=== PATIENT | female | born 1975 | race Caucasian/White ===

== ENCOUNTER 2016-07-03 07:06 | Emergency (ER) | payer BC, OTHER ==
[~2016-07-03] VITALS: Ht 175.3 cm; Wt 80.5 kg
[~2016-07-03 07:06] MED LIST: LEVO50TA PO
[2016-07-03 07:10] VITALS: TEMP 36.6; Ht 175.3 cm; Wt 80.5 kg
[2016-07-03] MEDS ORDERED: MoRPHine SULFATE 4 MG/ML 1 ML CARP\\VIAL IV STA (07:28)
[2016-07-03] MEDS ORDERED: SODIUM CHLORIDE 0.9% 1000ML 1,000 ML IV STA (07:28)
--- NOTE | 2016-07-03 07:41 | DIAGNOSTIC IMAGING REPORT ---
CHEST ONE VIEW PORTABLE CLINICAL HISTORY: Atypical chest pain COMPARISON STUDY: No previous studies for comparison. FINDINGS: The cardiac and mediastinal contours are normal. There is no evidence of focal pulmonary consolidation. There is no evidence of failure. No pleural effusions are visualized.[ IMPRESSION: No active disease in the chest. Electronically signed by: Reagan Adair M.D. 07/03/2016 7:39 AM Dictated Date/Time: 07/03/2016 7:39 AM
[2016-07-03] MEDS ORDERED: LEVO112T4 PO (07:42)
[2016-07-03 07:54] LABS: BASO % 0.2 %; BASO ABS # 0.01 K/uL (0-0.2); COMPLETE YES; EOS % 2.7 %; HEMATOCRIT 43.9 % (37-47); IG% 0.2 %; LYMPH % 12.7 %; LYMPH ABS # 0.65 K/uL (1.2-3.4); MEAN CELL VOLUME 91.5 fL (80-100); MEAN CORPUSCULAR HEMOGLOBIN 30.8 pg (25-34); MEAN CORPUSCULAR HGB CONC 33.7 g/dl (32-36); MEAN PLATELET VOLUME 10.9 fL (7.4-10.4); MONO % 7.4 %; NEUT % 76.8 %; PLATELET COUNT 168 K/uL (130-400); WHITE BLOOD COUNT 5.11 K/uL (4.8-10.8)
[2016-07-03 08:02] LABS: BUN/CREATININE RATIO 16.7 (10-20); CALCIUM 8.7 mg/dl (8.5-10.1); CREATININE 0.83 mg/dl (0.60-1.20); POTASSIUM 4.1 mmol/L (3.5-5.1)
[2016-07-03 08:07] LABS: CKMB/CK RATIO 1.4 (0-3.0)
[2016-07-03 08:43] VITALS: BP 100/58; PULSE 64; O2SAT 96
[2016-07-03 08:56] LABS: URINE APPEARANCE CLEAR (CLEAR); URINE BILIRUBIN NEG (NEG); URINE COLOR YELLOW; URINE EPITHELIAL CELL AUTO >30 /lpf (0-5); URINE NITRITE NEG (NEG); URINE PH 6.5 (4.5-7.5); URINE SPECIFIC GRAVITY 1.019 (1.000-1.030); UROBILINOGEN NEG (NEG)
[2016-07-03 08:58] LABS: MANUAL MICROSCOPIC REQUIRED? NO; REVIEW REQ? NO
--- NOTE | 2016-07-03 09:17 | EMERGENCY ROOM VISIT NOTE ---
ED Visit Note First contact with patient: 07:12 Chief Complaint: Abdominal pain. History of Present Illness: Ms. Winn is a 40 year-old white female complaining of epigastric abdominal pain. Historically patient reports she is status post cholecystectomy from approximately 12 years ago without complications. Additionally she reports over the last 24-36 hours her had gastroenteritis-like symptoms and for the last 24 hours she has been having intermittent nausea but no vomiting. Patient reports a acute onset of epigastric abdominal pain that woke her from sleep started approximately 1.5 hours ago. She reports she had a severe cramping in the epigastric area that lasted approximately 3 minutes and then resolved and returned for approximately the same length of time and subsequently has resolved. She reports at the time of the pain and doubled her over. Her pain was rated 9/10. Currently she is pain-free. Her pain was minimally rating in her lower sternal area and just superior to the umbilicus. She did not identify any aggravating or alleviating factors related to the discomfort. She did not take any medications for her discomfort prior to arrival at the hospital. She has had no similar episodes of pain. Associated with the she reports she was nauseated but didn't vomit and on the last episode of pain she reports she had paresthesias in both arms and her face and became diaphoretic. Patient denies fevers, chills, skin eruptions, skin color changes, upper respiratory tract symptoms, shortness of breath, palpitations, orthopnea, dependent edema, previous clots, claudication, recent surgery/inactivity/ extended travel, diarrhea, constipation, rectal bleeding, black/tarry stools, urinary symptoms, hematuria, vaginal bleeding, vaginal discharge, back/flank pain. Review of Systems: As noted above in history of present illness. All body systems were reviewed and found to be negative as noted above. Past Medical History: As previously noted, hypothyroidism. Current Medications: Levothyroxine. Allergies to Medications: Amoxicillin. Social History: Patient is currently; she felt safe environment; she denies tobacco use; she admits to social alcohol use. Physical Examination: Vital Signs: Date Time Temp Pulse Resp B/P Pulse Ox O2 Delivery O2 Flow Rate FiO2 07/03/16 08:43 64 14 100/58 96 07/03/16 08:00 68 14 104/60 97 Room Air 07/03/16 07:50 70 07/03/16 07:10 36.6 76 18 99/60 95 Room Air GENERAL: 40-year-old female in no acute distress, nontoxic-appearing, afebrile and hemodynamically stable. NEUROLOGICAL: Awake, alert and oriented to person, place and time. Answering questions appropriately and following commands. Normal gait. Good hand eye coordination. SKIN: Warm, dry and pink. No soft tissue eruptions or trauma noted. HEENT: Atraumatic and normocephalic. PERRLA. Sclera white and conjunctiva pink. Oral cavity moist and pink. Pharynx is nonerythematous or edematous. Speech normal. No lymphadenopathy. Trachea midline. No jugular venous distention. BACK: No tenderness over the bony spine. No CVA tenderness. THORAX: Lungs sounds are clear to auscultation and equal bilaterally with symmetrical chest wall. No wheezing, rales or rhonchi. No crepitus, tenderness , subcutaneous air or deformities noted. HEART: Regular rate and rhythm. No gallops, rubs or murmurs are appreciated. PMI is not displaced. No lifts, heaves or thrills. ABDOMEN: Flat, soft and nontender. Positive bowel sounds in all quadrants. No guarding, rigidity or organomegaly. EXTREMITIES: Moves all extremities well on command and with purpose. All distal neurovascular statuses are intact and equal bilaterally. ED Course: Patient is assessed as noted above. Laboratory Testing: Test 07/03/16 07:25 07/03/16 07:27 Range/Units White Blood Count 5.11 4.8-10.8 K/uL Red Blood Count 4.80 4.2-5.4 M/uL Hemoglobin 14.8 12.0-16.0 g/dL Hematocrit 43.9 37-47 % Mean Corpuscular Volume 91.5 80-100 fL Mean Corpuscular Hemoglobin 30.8 25-34 pg Mean Corpuscular Hemoglobin Concent 33.7 32-36 g/dl Platelet Count 168 130-400 K/uL Mean Platelet Volume 10.9 7.4-10.4 fL Neutrophils (%) (Auto) 76.8 % Lymphocytes (%) (Auto) 12.7 % Monocytes (%) (Auto) 7.4 % Eosinophils (%) (Auto) 2.7 % Basophils (%) (Auto) 0.2 % Neutrophils # (Auto) 3.92 1.4-6.5 K/uL Lymphocytes # (Auto) 0.65 1.2-3.4 K/uL Monocytes # (Auto) 0.38 0.11-0.59 K/uL Eosinophils # (Auto) 0.14 0-0.5 K/uL Basophils # (Auto) 0.01 0-0.2 K/uL RDW Standard Deviation 43.9 36.4-46.3 fL RDW Coefficient of Variation 13.1 11.5-14.5 % Immature Granulocyte % (Auto) 0.2 % Immature Granulocyte # (Auto) 0.01 0.00-0.02 K/uL Urine Color YELLOW Urine Appearance CLEAR CLEAR Urine pH 6.5 4.5-7.5 Urine Specific [place] 1.019 1.000-1.030 Urine Protein NEG NEG Urine Glucose (UA) NEG NEG Urine Ketones NEG NEG Urine Occult Blood NEG NEG Urine Nitrite NEG NEG Urine Bilirubin NEG NEG Urine Urobilinogen NEG NEG Urine Leukocyte Esterase SMALL NEG Urine WBC (Auto) 5-10 0-5 /hpf Urine RBC (Auto) 0-4 0-4 /hpf Urine Hyaline Casts (Auto) 1-5 0-5 /lpf Urine Epithelial Cells (Auto) >30 0-5 /lpf Urine Bacteria (Auto) 1+ NEG Urine Test NEG NEG Sodium Level 141 136-145 mmol/L Potassium Level 4.1 3.5-5.1 mmol/L Chloride Level 107 98-107 mmol/L Carbon Dioxide Level 26 21-32 mmol/L Anion Gap 8.0 3-11 mmol/L Blood Urea Nitrogen 14 7-18 mg/dl Creatinine 0.83 0.60-1.20 mg/dl Est Creatinine Clear Calc Drug Dose 104.4 ml/min Estimated GFR () 103.7 Estimated GFR (Non- 89.5 BUN/Creatinine Ratio 16.7 10-20 Random Glucose 97 70-99 mg/dl Calcium Level 8.7 8.5-10.1 mg/dl Total Bilirubin 0.6 0.2-1 mg/dl Direct Bilirubin 0.2 0-0.2 mg/dl Aspartate Amino Transf (AST/SGOT) 25 15-37 U/L Alanine Aminotransferase (ALT/SGPT) 26 12-78 U/L Alkaline Phosphatase 63 45-117 U/L Total Creatine Kinase 151 26-192 U/L Creatine Kinase MB 2.1 0.5-3.6 ng/ml Creatine Kinase MB Ratio 1.4 0-3.0 Total Protein 7.1 6.4-8.2 gm/dl Albumin 3.9 3.4-5.0 gm/dl Lipase 97 73-393 U/L Bedside Troponin I 0.000 0-0.045 ng/ml Chest X-Ray: Was read by myself and the radiologist showing no acute infiltrates , effusions or pneumothorax. Normal heart silhouette and bony anatomy. EKG: Was read by myself and reviewed with ; shows normal sinus rhythm with ventricular rate of 70 bpm. Normal axis, intervals and complexes. No acute ST changes indicating ischemia, injury or infarction. No previous to compare. Patient was hydrated with normal saline. Patient was reassessed multiple times during her stay in the emergency department. Patient's case was reviewed with ; we agreed on diagnostic approach, treatment, disposition and plan. Patient was educated about tonight's findings and instructed on her treatment plan; she verbalizes understanding and agreement with this plan. Clinical Impression: Acute epigastric pain. Decision-Making: Initially my differential diagnosis I considered esophageal rupture, esophageal spasm, gastric reflux, gastritis, hepatitis, pancreatitis, low level pneumonia, acute coronary syndrome, thoracic aneurysm, pneumothorax and other causes. Disposition: Patient discharged home in stable condition accompanied by her ; prior to departure she was reassessed and subjectively reported that she was pain and symptom-free. Plan: Patient was encouraged to use 650 mg of acetaminophen every 6 hours as needed for pain. Patient was encouraged to stay well-hydrated. Patient was encouraged use a bland diet for the next 24 hours and avoid stomach irritants including NSAIDs. Patient was encouraged to follow-up with family physician for recheck. Patient was encouraged return the ED for worsening/uncontrolled pain, fevers, vomiting, bloody stools or any new/concerning symptoms.
== END 2016-07-03 08:45 | disposition home or self-care (01) ==
LOC: C.EDB 07:07
DX: R10.13 Epigastric pain (principal); E03.9 Hypothyroidism, unspecified

== ENCOUNTER 2022-02-06 11:36 | Inpatient (IN) ==
[2022-02-06] MEDS ORDERED: LORazepam 1 MG TAB PO STA (12:13)
[2022-02-06 12:18] LABS: Appearance Urine Clear (Clear); Bilirubin Urine Negative (Negative); Blood Urine Negative (Negative); Color Urine Yellow; Glucose Urine UA Negative (Negative); Ketones Urine Negative (Negative); Leukocyte Esterase Urine Negative (Negative); Nitrite Urine Negative (Negative); Protein Urine Negative (Negative); Specific Gravity Urine 1.005 (1.000-1.030); Urobilinogen Urine Negative (Negative)
--- NOTE | 2022-02-06 12:18 | Emergency Department Note ---
Impression & Plan Depression with suicidal ideation, Anxiety ED Provider Note Provider: Keith Ugarte MD DATE OF SERVICE: 02/06/2022 CHIEF COMPLAINT: Mental breakdown, anxiety, depression HISTORY OF PRESENT ILLNESS: Patient is a 46-year-old female presenting with today reporting worsening anxiety and depression symptoms developing over the past 2 weeks. Has had several decade history of some intermittent depression and anxiety. Patient has been report that she had significant blues and depression approximately 16 to 18 years ago actually found on the balcony and one-point and had inpatient hospitalization. Last year had significant anxiety and depression in the fall and started medications and therapy. Was doing better in the beginning of summer. 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 Came off medications and has not been in therapy since then. Last several weeks went back on her anxiety and depression medications. Did call and has an appointment status in 10 days to discuss with her therapist again her thoughts. Does not have a psychiatrist but her primary doctor has been writing her medications. Today very anxious and not sleeping as well. Patient states he is having ongoing thoughts of not wanting to be around to being almost out of body. No significant trauma or fevers otherwise reported. Patient states he is having anxiety at times and feels she is having an anxiety attack. Now having thoughts of possibly wanting to end her life but has not tried. She states she is thought since she does not have a gun she might go to a bridge or tall building and jump. REVIEW OF SYSTEMS: A total of 10 review of systems was obtained and negative except as stated above in the HPI. PAST MEDICAL HISTORY: As noted above MEDICATIONS: Reviewed home medication list SOCIAL HISTORY: No drug or alcohol history reported. 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 PHYSICAL EXAM: GENERAL: alert and oriented seated on bed at bedside appears anxious. Head: normocephalic and atraumatic EYES: No injection, discharge or icterus. NECK: Trachea midline. LUNGS: Airway patent. No retractions with some slight tachypnea at times. HEART: Regular rate and rhythm. SKIN: Acyanotic, warm, dry, without rashes EXTREMITIES: Without swelling or deformity noted. NEUROLOGICAL: No focal deficits. No aphasia or slurred speech. Ambulatory. Psych: Endorses thoughts of not wanting to be alive and SI with possibly planning to jump off a bridge or tall building. Denies HI. Denies hallucinations. Quite animated and anxious and at times almost tearful. Not responding to external stimuli. Patient's laboratory studies reviewed. Differential includes Mood disorder, infection, hypoglycemia, electrolyte abnormalities, cardiac sources, intracerebral event, toxicologic, trauma, neurologic, as well as other pathologies. IMPRESSION/MEDICAL DECISION MAKING: Patient is history of inpatient hospitalization more recently on psychotropic medications and the PCP as well as working a therapist although this did not occur during the summer. Patient now states she is feeling at times out of body and does not want to go on is now having thoughts of wanting to harm her self. Patient denies drug or alcohol use. Basic blood work was obtained. Patient denies attempting to harm her self and denies HI to me. Quite anxious and given a dose of some oral Ativan here to help with this. Seen with case management. There was discussion of the possible benefits of inpatient psychiatric care at this time to help with her significant symptoms. Voluntary inpatient treatment on a [address] was pursued and signed after an extensive discussion with them at bedside regarding the process. DIAGNOSIS: Depression with suicidal ideation, anxiety DISPOSITION: [address] [place] [address] for inpatient mental health care Past Med/Surg History Social History Smoking Status: Never smoker Preferred Language: Sinhala Communication Ability: Effective Core Inserter Required: No Beliefs That Will Affect Care: None Feels Safe at Home: Yes Assistive Devices: None Allergies Allergies Allergy/AdvReac Type Severity Reaction Status Date / Time amoxicillin Allergy Mild RASH Verified 07/03/16 07:41 Home Meds Home Medications Medication Instructions Recorded Confirmed buspirone 10 mg tablet 10 mg PO BID 02/06/22 02/06/22 cholecalciferol (vitamin D3) 50 50 mcg PO QAM 02/06/22 02/06/22 mcg (2,000 unit) capsule (D3-2000) levothyroxine 112 mcg tablet 112 mcg PO QAM 02/06/22 02/06/22 trazodone 100 mg tablet 100 mg PO HS 02/06/22 02/06/22 Results & Data (ED) Vital Signs Vital Signs - 24 hr 02/06/22 11:37 02/06/22 13:25 Pulse Rate 90 Pulse Rate [Finger] 74 Respiratory Rate 22 14 Blood Pressure [Right Arm] 115/76 Blood Pressure Mean [Right Arm] 89 Blood Pressure Position Sitting Pulse Oximetry 100 100 Oxygen Delivery Method Room Air Room Air Sepsis Recent Fever Within 48 Hours No Sepsis New/Unexplained Change in Mental Status No Sepsis Action Taken by Nursing No Action Required Laboratory Data Result diagrams: 02/06/22 12:10 02/06/22 12:10 Lab Results 02/06/22 02/06/22 02/06/22 Range/Units 12:00 12:00 12:00 WBC (4.8-10.8) K/ul RBC (3.93-5.22) M/uL Hgb (12.0-16.0) g/dl Hct (34.1-44.9) % MCV (80.0-100.0) fL MCH (25.0-34.0) pg MCHC (32.0-36.0) g/dL RDW Std Deviation (36.4-46.3) fL RDW Coeff of Ashley (11.5-14.5) % Plt Count (130-400) K/uL MPV (9.4-12.3) fL Immature Gran % (Auto) % Neut % (Auto) % Lymph % (Auto) % [place] % (Auto) % Eos % (Auto) % Baso % (Auto) % Neut # (Auto) (1.4-6.5) K/uL Lymph # (Auto) (1.2-3.4) K/uL [place] # (Auto) (0.24-0.82) K/uL Eos # (Auto) (0-0.50) K/uL Baso # (Auto) (0-0.2) K/uL Immature Gran # (Auto) (0.00-0.02) K/uL Sodium (136-145) mmol/L Potassium (3.5-5.1) mmol/L Chloride (98-107) mmol/L Carbon Dioxide (21-32) mmol/L Anion Gap (3-11) BUN (6-23) mg/dl Creatinine (0.6-1.2) mg/dl Est Cr Clr Drug Dosing ml/min Est GFR ( Amer) ml/min Est GFR (Non-Af Amer) ml/min BUN/Creatinine Ratio (10-20) Glucose (70-99(Fasting)) mg/dl Calcium (8.5-10.1) mg/dl Total Bilirubin (0.2-1.0) mg/dl AST (13-39) U/L ALT (7-52) U/L Alkaline Phosphatase (34-104) U/L Total Protein (6.0-8.3) gm/dl Albumin (3.4-5.0) gm/dl Globulin (2.5-4.0) gm/dl Albumin/Globulin Ratio (0.9-2) TSH (0.300-4.500) uIu/ml Urine Color Yellow Urine Appearance Clear (Clear) Urine pH 6.0 (4.5-7.5) Ur Specific [place] 1.005 (1.000-1.030) Urine Protein Negative (Negative) Urine Glucose (UA) Negative (Negative) Urine Ketones Negative (Negative) Urine Blood Negative (Negative) Urine Nitrite Negative (Negative) Urine Bilirubin Negative (Negative) Urine Urobilinogen Negative (Negative) Ur Leukocyte Esterase Negative (Negative) POC Ur Test NEG (NEG) Salicylates (3.0-30) mg/dl Urine Opiates Screen Neg (Neg) Ur Methadone, Qual Neg (Neg) Acetaminophen (10-30) ug/ml Urine Barbiturates Neg (Neg) Ur Phencyclidine (PCP) Neg (Neg) U Amphetamin/Meth Scrn Neg (Neg) MDMA (Ecstasy) Screen Neg (Neg) U Benzodiazepines Scrn Neg (Neg) Ur Cocaine Metabolite Neg (Neg) U Marijuana (THC) Screen Neg (Neg) Ethyl Alcohol mg/dL (<10.0) mg/dl SARS-CoV-2, RNA, NAAT (NEGATIVE) 02/06/22 02/06/22 02/06/22 Range/Units 12:10 12:10 12:10 WBC 7.67 (4.8-10.8) K/ul RBC 4.76 (3.93-5.22) M/uL Hgb 14.3 (12.0-16.0) g/dl Hct 43.9 (34.1-44.9) % MCV 92.2 (80.0-100.0) fL MCH 30.0 (25.0-34.0) pg MCHC 32.6 (32.0-36.0) g/dL RDW Std Deviation 42.4 (36.4-46.3) fL RDW Coeff of Ashley 12.4 (11.5-14.5) % Plt Count 247 (130-400) K/uL MPV 10.1 (9.4-12.3) fL Immature Gran % (Auto) 0.3 % Neut % (Auto) 72.4 % Lymph % (Auto) 17.3 % [place] % (Auto) 7.7 % Eos % (Auto) 1.6 % Baso % (Auto) 0.7 % Neut # (Auto) 5.56 (1.4-6.5) K/uL Lymph # (Auto) 1.33 (1.2-3.4) K/uL [place] # (Auto) 0.59 (0.24-0.82) K/uL Eos # (Auto) 0.12 (0-0.50) K/uL Baso # (Auto) 0.05 (0-0.2) K/uL Immature Gran # (Auto) 0.02 (0.00-0.02) K/uL Sodium 137 (136-145) mmol/L Potassium 3.6 (3.5-5.1) mmol/L Chloride 103 (98-107) mmol/L Carbon Dioxide 28 (21-32) mmol/L Anion Gap 6 (3-11) BUN 13 (6-23) mg/dl Creatinine 0.81 (0.6-1.2) mg/dl Est Cr Clr Drug Dosing 109.5 ml/min Est GFR ( Amer) 102.4 ml/min Est GFR (Non-Af Amer) 88.3 ml/min BUN/Creatinine Ratio 16.0 (10-20) Glucose 106 H (70-99(Fasting)) mg/dl Calcium 9.4 (8.5-10.1) mg/dl Total Bilirubin 0.7 (0.2-1.0) mg/dl AST 18 (13-39) U/L ALT 14 (7-52) U/L Alkaline Phosphatase 58 (34-104) U/L Total Protein 6.9 (6.0-8.3) gm/dl Albumin 4.4 (3.4-5.0) gm/dl Globulin 2.5 (2.5-4.0) gm/dl Albumin/Globulin Ratio 1.8 (0.9-2) TSH 3.252 (0.300-4.500) uIu/ml Urine Color Urine Appearance (Clear) Urine pH (4.5-7.5) Ur Specific [place] (1.000-1.030) Urine Protein (Negative) Urine Glucose (UA) (Negative) Urine Ketones (Negative) Urine Blood (Negative) Urine Nitrite (Negative) Urine Bilirubin (Negative) Urine Urobilinogen (Negative) Ur Leukocyte Esterase (Negative) POC Ur Test (NEG) Salicylates (3.0-30) mg/dl Urine Opiates Screen (Neg) Ur Methadone, Qual (Neg) Acetaminophen (10-30) ug/ml Urine Barbiturates (Neg) Ur Phencyclidine (PCP) (Neg) U Amphetamin/Meth Scrn (Neg) MDMA (Ecstasy) Screen (Neg) U Benzodiazepines Scrn (Neg) Ur Cocaine Metabolite (Neg) U Marijuana (THC) Screen (Neg) Ethyl Alcohol mg/dL (<10.0) mg/dl SARS-CoV-2, RNA, NAAT (NEGATIVE) 02/06/22 02/06/22 02/06/22 Range/Units 12:10 12:10 12:14 WBC (4.8-10.8) K/ul RBC (3.93-5.22) M/uL Hgb (12.0-16.0) g/dl Hct (34.1-44.9) % MCV (80.0-100.0) fL MCH (25.0-34.0) pg MCHC (32.0-36.0) g/dL RDW Std Deviation (36.4-46.3) fL RDW Coeff of Ashley (11.5-14.5) % Plt Count (130-400) K/uL MPV (9.4-12.3) fL Immature Gran % (Auto) % Neut % (Auto) % Lymph % (Auto) % [place] % (Auto) % Eos % (Auto) % Baso % (Auto) % Neut # (Auto) (1.4-6.5) K/uL Lymph # (Auto) (1.2-3.4) K/uL [place] # (Auto) (0.24-0.82) K/uL Eos # (Auto) (0-0.50) K/uL Baso # (Auto) (0-0.2) K/uL Immature Gran # (Auto) (0.00-0.02) K/uL Sodium (136-145) mmol/L Potassium (3.5-5.1) mmol/L Chloride (98-107) mmol/L Carbon Dioxide (21-32) mmol/L Anion Gap (3-11) BUN (6-23) mg/dl Creatinine (0.6-1.2) mg/dl Est Cr Clr Drug Dosing ml/min Est GFR ( Amer) ml/min Est GFR (Non-Af Amer) ml/min BUN/Creatinine Ratio (10-20) Glucose (70-99(Fasting)) mg/dl Calcium (8.5-10.1) mg/dl Total Bilirubin (0.2-1.0) mg/dl AST (13-39) U/L ALT (7-52) U/L Alkaline Phosphatase (34-104) U/L Total Protein (6.0-8.3) gm/dl Albumin (3.4-5.0) gm/dl Globulin (2.5-4.0) gm/dl Albumin/Globulin Ratio (0.9-2) TSH (0.300-4.500) uIu/ml Urine Color Urine Appearance (Clear) Urine pH (4.5-7.5) Ur Specific [place] (1.000-1.030) Urine Protein (Negative) Urine Glucose (UA) (Negative) Urine Ketones (Negative) Urine Blood (Negative) Urine Nitrite (Negative) Urine Bilirubin (Negative) Urine Urobilinogen (Negative) Ur Leukocyte Esterase (Negative) POC Ur Test (NEG) Salicylates < 3.0 L (3.0-30) mg/dl Urine Opiates Screen (Neg) Ur Methadone, Qual (Neg) Acetaminophen < 3 L (10-30) ug/ml Urine Barbiturates (Neg) Ur Phencyclidine (PCP) (Neg) U Amphetamin/Meth Scrn (Neg) MDMA (Ecstasy) Screen (Neg) U Benzodiazepines Scrn (Neg) Ur Cocaine Metabolite (Neg) U Marijuana (THC) Screen (Neg) Ethyl Alcohol mg/dL < 10.0 (<10.0) mg/dl SARS-CoV-2, RNA, NAAT NEGATIVE (NEGATIVE) Administered Medications Discontinued Medications Lorazepam (Lorazepam 1 Mg Tab) 1 mg PO NOW STA Stop: 02/06/22 12:14 Last Admin: 02/06/22 12:27 Dose: 1 mg Documented By: FREDY Discharge Plan Visit Data Chief Complaint: Mental Health Evaluation Stated Complaint: MENTAL BREAKDOWN ED Provider: Keith Ugarte Discharge Problem: Depression with suicidal ideation, Anxiety Patient Disposition: Admitted As Inpatient Discharge Instructions Interventions: ED Discharge Assessment Last Done: 02/06/22 14:51
[2022-02-06 12:25] LABS: Basophils # (auto) 0.05 K/uL (0-0.2); Basophils % (auto) 0.7 %; Eosinophils # (auto) 0.12 K/uL (0-0.50); Eosinophils % (auto) 1.6 %; Hematocrit (blood only) 43.9 % (34.1-44.9); Hemoglobin 14.3 g/dl (12.0-16.0); Immature Granulocytes # (auto) 0.02 K/uL (0.00-0.02); Immature Granulocytes % (auto) 0.3 %; Lymphocytes # (auto) 1.33 K/uL (1.2-3.4); Lymphocytes % (auto) 17.3 %; Mean Corpuscular Hgb Conc 32.6 g/dL (32.0-36.0); Mean Corpuscular Volume 92.2 fL (80.0-100.0); Mean Platelet Volume 10.1 fL (9.4-12.3); Monocytes # (auto) 0.59 K/uL (0.24-0.82); Monocytes % (auto) 7.7 %; Neutrophils # (auto) 5.56 K/uL (1.4-6.5); Neutrophils % (auto) 72.4 %; Platelet Count 247 K/uL (130-400); RDW Coefficient of Variation 12.4 % (11.5-14.5); RDW Standard Deviation 42.4 fL (36.4-46.3); Red Blood Count 4.76 M/uL (3.93-5.22); White Blood Count 7.67 K/ul (4.8-10.8)
[2022-02-06 12:54] LABS: Albumin Globulin Ratio 1.8 (0.9-2); Albumin Level 4.4 gm/dl (3.4-5.0); Bilirubin,Total 0.7 mg/dl (0.2-1.0); Calcium 9.4 mg/dl (8.5-10.1); Creatinine Clr Calc Pharmacy 109.5 ml/min; Est GFR (African American) 102.4 ml/min; Est GFR (Non-African American) 88.3 ml/min; Globulin 2.5 gm/dl (2.5-4.0); Potassium 3.6 mmol/L (3.5-5.1); Total Protein 6.9 gm/dl (6.0-8.3)
[2022-02-06 12:55] LABS: Acetaminophen < 3 ug/ml (10-30); Salicylate < 3.0 mg/dl (3.0-30)
[2022-02-06 13:13] LABS: Amphetamines+Metham, Urine Neg (Neg); Barbiturates, Urine Neg (Neg); Benzodiazepine, Urine Neg (Neg); Cocaine, Urine Neg (Neg); MDMA (Ecstacy), Urine Neg (Neg); Methadone, Urine Neg (Neg); Opiate, Urine Neg (Neg); Phencyclidine, Urine Neg (Neg)
[2022-02-06] MEDS ORDERED: ALUMINUM/MAGNESIUM SUSP 30 ML UDC PO PRN (16:06)
[2022-02-06] MEDS ORDERED: MAGNESIUM HYDROXIDE SUSP 30 ML UDC PO PRN (16:06)
[2022-02-06] MEDS ORDERED: hydrOXYzine HCl 25 MG TAB PO PRN ×2 (16:06)
[2022-02-06] MEDS ORDERED: BISMUTH SUBSALICYLATE LIQD 236 ML PO PRN (16:06)
[2022-02-06] MEDS ORDERED: ACETAMINOPHEN 325 MG TAB PO PRN (16:06)
[2022-02-06] MEDS ORDERED: SODIUM CHLORIDE 0.65% NA SOLN 45 ML (OCEAN) PRN (16:06)
[2022-02-06] MEDS ORDERED: traZODone HCL 100 MG TAB PO SCH (22:00)
[2022-02-06] MEDS: busPIRone 5 MG TAB PO SCH (22:53)
[2022-02-07] MEDS: LEVOTHYROXINE SODIUM 112 MCG TABLET PO SCH (06:06)
[2022-02-07] MEDS ORDERED: CHOLECALCIFEROL 1,000 UNITS 25 MCG TAB PO SCH (09:00)
--- NOTE | 2022-02-07 09:00 | History & Physical ---
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 Diagnostically consistent with MDD with anxious distres and TOM with panic attacks. The patient is deemed unstable and requires psychiatric hospitalization for diagnostic clarification, safety and stabilization, medication management and development of further coping skills. Discussed medication treatment options in detail including SSRIs, SNRI, etc. Discussed risks, benefits and alternatives. Patient would like to start and consented to fluoxetine for TOM and MDD as well as mirtazapine for insomnia and MDD augmentation and ativan for panic attacks and buspar for TOM. Reviewed side effects including but not limited to: GI, MCCULLOUGH, sexual side effects for fluoxetine, sedation/increased appetite for mirtazapine, addictive potential/fatal respiratory depression potential if combined with alcohol/avoiding driving & operating machinery and sedation with ativan and dizziness with buspar. (1) Depression with suicidal ideation: (2) Recurrent severe major depressive disorder with anxiety: (3) Generalized anxiety disorder with panic attacks: Plan 02/07/22: The patient was admitted to the [facility] ([facility]) on q15 min checks (behavioral with suicide precautions) for safety. The patient will participate in group, recreational, and milieu therapies and will be offered additional individual and family sessions as clinically appropriate. -c/w buspar -discontinue trazodone -fluoxetine 10mg qd -mirtazapine 7.5 mg qhs -ativan 0.5mg daily prn for panic attacks Inventory Assets Strengths: supportive family, willingness to seek treatment, resilient Needs: safety and stabilization, medication adjustment, additional coping skills, increased outpatient services Suicide Risk Level Suicide Risk Level: High-Moderate (q15 min suicide checks) Suicide Risk Level Comments: High-Moderate due to severe depression with SI with plan prior to admission but feels safe in the hospital, able to safety contract and agrees to let nursing/staff know should they develop plan, intent or feel unable to remain safe. Risk Factors Assessment : Yes Do You Have Access To A Gun?: No Mental Health Diagnoses: Yes Previous Attempt: No Family History of Suicide: No Previous Psychiatric Hospitalization: Yes Hopelessness: Yes Protective Factors Assessment : Yes Responsible for Young Children: Yes Employed: Yes ([employer]) Stable Relationships: Yes Supportive Family: Yes Good Rapport with Provider: Yes Psychiatric History Identifying Data NIKO FRANCISCO is a 46-year-old F who currently lives in [place] with her and two children, has a history of depression, anxiety, post- depression, and was admitted on 02/06/22 14:23 on a 201 voluntary commitment for depression and SI with plan of jumping from a bridge or building. Chief Complaint "I feel completely trapped". 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 After the school year ended she transitioned off her psychiatric medications over the summer during a low stress time. Last fall since had very intense SI. Yesterday she felt extremely overwhelmed by the stress of her job and "I couldn't see a way out" and was feeling very suicidal with thoughts of driving somewhere and jumping off of something because she noted she didn't have access to a gun and didn't have any medications that could be used to cause enough harm at home. She feels she cannot do this job and feels she cannot leave the position because it would ruin her snf and isn't financially feasible. She notes that she was not well prepared for her new [facility] position and feels helpless to implement the corniculum and "it's too much, I can't do it". She endorses depressive symptoms including tearfulness, anhedonia, decreased motivation, self-guilt, shame, discomfort, helplessness, hopelessness, decreased energy, decreased appetite but still eating, and decreased sleep (can fall asleep but multiple awakenings over night, wakes up with extreme anxiety, usually only about 5 hours per night) as well as difficulty with concentration and she feels unable to present. She also endorses symptoms of anxiety, which seemed to start first and then lead to worsening depression. She endorses symptoms of anxiety including generalized worries, muscle tension in her neck, palpitations, easily overwhelmed and panic attacks occurring three times per day lasting for about 10-15 minutes. She was prescribed Buspar and trazodone last year but then stopped after doing well over the summer but restarted then about two weeks ago. Last fall she felt the medication helped a lot. Psychiatric ROS notable for no current nor history of symptoms of jitendra, psychosis, PTSD, OCD nor eating disorder. Past Psychiatric History Previous Psych History: First episode of depression after of her son, since then depression has been intermittent. 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, dep, anxiety Outpatient Services: Therapy Janna Byrd at [place], had stopped but restarting in 10 days Previous Psych Admissions: 2006 at [facility] for post- depression Do You Have Access To A Gun?: No History of Previous Suicide Attempt: No (2005 near attempt standing balcony of apt with knife) Past Medication Trials: escitalopram-caused dizziness took for about 1 week, sertraline after post- depression, ativan in the past Past Head Trauma/Neuro History History of Concussion/Seizure: Yes (concussion in 2018 ) Allergies Allergy/AdvReac Type Severity Reaction Status Date / Time amoxicillin Allergy Mild RASH Verified 07/03/16 07:41 Home Medications Medication Instructions Recorded Confirmed Type buspirone 10 mg tablet 10 mg PO BID 02/06/22 02/06/22 History cholecalciferol (vitamin D3) 50 50 mcg PO QAM 02/06/22 02/06/22 History mcg (2,000 unit) capsule (D3-2000) levothyroxine 112 mcg tablet 112 mcg PO QAM 02/06/22 02/06/22 History trazodone 100 mg tablet 100 mg PO HS 02/06/22 02/06/22 History Family History Family History of: Depression (maternal grandfather ), Alcoholism/Drug Abuse (maternal side ) and Other-List under Comment (half-sister with BPD) Alcohol History Hx of Alcohol Use Over the Past 12 Months: Yes Will have 2-3 glasses of wine a few times per week, max 5-6 glasses of wine per week Smoking Use Have You Smoked or Used Tobacco Products in the Last 30 Days: No Smoking Status: Never smoker Substance History Hx of Prescription Med Misuse Over the Past 12 Months: No Hx of Over the Counter Med Misuse Over the Past 12 Months: No Hx of Inhalent Misuse Over the Past 12 Months: No Hx of Organic Substance Use Over the Past 12 Months: No Hx of Illegal Substances/Street Drug Use Over Past 12 Months: No Problems as a Result of Past Substance Use: None Identified Personal History Living Arrangements: Home Childhood: Mother is still living, estranged from sibling Highest Grade Completed: Graduate School (Masters ) 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[facility]) Marital Status: (18 years) Number Of Children: 2 sons-16yo and 8 yo Beliefs That Will Affect Care: None Current Legal Problems: No (hx PFA against her sister in January 2021 for three years) Hx Legal Problems: No Hx Traumatic Life Events: Yes (grew up in chaotic home environment due to her sister's mental health issue) Patient History Medical History (Updated 02/07/22 @ 10:37 by Mayte Miller MD) Hypothyroidism Social History Smoking Status: Never smoker Preferred Language: Romansh Communication Ability: Effective Political Science Research Assistant Required: No Beliefs That Will Affect Care: None Feels Safe at Home: Yes Assistive Devices: None Review of Systems Review of Systems: All systems reviewed & are unremarkable except as noted in HPI & below Physical Exam Psychiatric: Orientation: alert and oriented x 3 Apperance: appropriately dressed and appropriately groomed Eye Contact: good eye contact Motor Behavior: no abnormal motor movements Speech: normal rate/rhythm/volume of speech Affect: + depressed affect, + anxious affect and + tearful affect Mood: + depressed mood and + anxious mood Thought Process: goal directed thought process Thought Content: reality based without delusions Suicidal Thoughts: denies suicidal plan and denies suicidal intent; + reports suicidal thoughts (intermittent SI, no plan currently feels safe here) Homicidal Thoughts: denies homicidal thoughts Hallucinations: no auditory hallucinations and no visual hallucinations Cognition: recent memory grossly intact, remote memory grossly intact, attention grossly intact and language grossly intact Estimated Intelligence: consistent with education level Insight: + fair insight Judgement: + fair judgement Vital Signs (Past 24 Hours): Last Vital Signs Temp 36.9 C 02/07/22 06:00 Pulse 85 02/07/22 06:38 Resp 18 02/07/22 06:00 BP 108/70 02/07/22 06:38 Pulse Ox 99 02/06/22 15:49 O2 Del Method 02/06/22 15:49 Exam Statement: A physical exam was performed in the ED by Dr. Ugarte for the purposes of medical clearance. I accept that physical as correct and adequate for the purposes of the inpatient physical exam. Results & Data ([facility]) Laboratory Results Laboratory Results - last 24 hr 02/06/22 02/06/22 02/06/22 12:00 12:00 12:00 WBC RBC Hgb Hct MCV MCH MCHC RDW Std Deviation RDW Coeff of Ashley Plt Count MPV Immature Gran % (Auto) Neut % (Auto) Lymph % (Auto) Pershing % (Auto) Eos % (Auto) Baso % (Auto) Neut # (Auto) Lymph # (Auto) Pershing # (Auto) Eos # (Auto) Baso # (Auto) Immature Gran # (Auto) Sodium Potassium Chloride Carbon Dioxide Anion Gap BUN Creatinine Est Cr Clr Drug Dosing Est GFR ( Amer) Est GFR (Non-Af Amer) BUN/Creatinine Ratio Glucose Calcium Total Bilirubin AST ALT Alkaline Phosphatase Total Protein Albumin Globulin Albumin/Globulin Ratio TSH Urine Color Yellow Urine Appearance Clear Urine pH 6.0 Ur Specific [place] 1.005 Urine Protein Negative Urine Glucose (UA) Negative Urine Ketones Negative Urine Blood Negative Urine Nitrite Negative Urine Bilirubin Negative Urine Urobilinogen Negative Ur Leukocyte Esterase Negative POC Ur Test NEG Salicylates Urine Opiates Screen Neg Ur Methadone, Qual Neg Acetaminophen Urine Barbiturates Neg Ur Phencyclidine (PCP) Neg U Amphetamin/Meth Scrn Neg MDMA (Ecstasy) Screen Neg U Benzodiazepines Scrn Neg Ur Cocaine Metabolite Neg U Marijuana (THC) Screen Neg Ethyl Alcohol mg/dL SARS-CoV-2, RNA, NAAT 02/06/22 02/06/22 02/06/22 12:10 12:10 12:10 WBC 7.67 RBC 4.76 Hgb 14.3 Hct 43.9 MCV 92.2 MCH 30.0 MCHC 32.6 RDW Std Deviation 42.4 RDW Coeff of Ashley 12.4 Plt Count 247 MPV 10.1 Immature Gran % (Auto) 0.3 Neut % (Auto) 72.4 Lymph % (Auto) 17.3 Pershing % (Auto) 7.7 Eos % (Auto) 1.6 Baso % (Auto) 0.7 Neut # (Auto) 5.56 Lymph # (Auto) 1.33 Pershing # (Auto) 0.59 Eos # (Auto) 0.12 Baso # (Auto) 0.05 Immature Gran # (Auto) 0.02 Sodium 137 Potassium 3.6 Chloride 103 Carbon Dioxide 28 Anion Gap 6 BUN 13 Creatinine 0.81 Est Cr Clr Drug Dosing 109.5 Est GFR ( Amer) 102.4 Est GFR (Non-Af Amer) 88.3 BUN/Creatinine Ratio 16.0 Glucose 106 H Calcium 9.4 Total Bilirubin 0.7 AST 18 ALT 14 Alkaline Phosphatase 58 Total Protein 6.9 Albumin 4.4 Globulin 2.5 Albumin/Globulin Ratio 1.8 TSH 3.252 Urine Color Urine Appearance Urine pH Ur Specific [place] Urine Protein Urine Glucose (UA) Urine Ketones Urine Blood Urine Nitrite Urine Bilirubin Urine Urobilinogen Ur Leukocyte Esterase POC Ur Test Salicylates Urine Opiates Screen Ur Methadone, Qual Acetaminophen Urine Barbiturates Ur Phencyclidine (PCP) U Amphetamin/Meth Scrn MDMA (Ecstasy) Screen U Benzodiazepines Scrn Ur Cocaine Metabolite U Marijuana (THC) Screen Ethyl Alcohol mg/dL SARS-CoV-2, RNA, NAAT 02/06/22 02/06/22 02/06/22 12:10 12:10 12:14 WBC RBC Hgb Hct MCV MCH MCHC RDW Std Deviation RDW Coeff of Ashley Plt Count MPV Immature Gran % (Auto) Neut % (Auto) Lymph % (Auto) Pershing % (Auto) Eos % (Auto) Baso % (Auto) Neut # (Auto) Lymph # (Auto) Pershing # (Auto) Eos # (Auto) Baso # (Auto) Immature Gran # (Auto) Sodium Potassium Chloride Carbon Dioxide Anion Gap BUN Creatinine Est Cr Clr Drug Dosing Est GFR ( Amer) Est GFR (Non-Af Amer) BUN/Creatinine Ratio Glucose Calcium Total Bilirubin AST ALT Alkaline Phosphatase Total Protein Albumin Globulin Albumin/Globulin Ratio TSH Urine Color Urine Appearance Urine pH Ur Specific [place] Urine Protein Urine Glucose (UA) Urine Ketones Urine Blood Urine Nitrite Urine Bilirubin Urine Urobilinogen Ur Leukocyte Esterase POC Ur Test Salicylates < 3.0 L Urine Opiates Screen Ur Methadone, Qual Acetaminophen < 3 L Urine Barbiturates Ur Phencyclidine (PCP) U Amphetamin/Meth Scrn MDMA (Ecstasy) Screen U Benzodiazepines Scrn Ur Cocaine Metabolite U Marijuana (THC) Screen Ethyl Alcohol mg/dL < 10.0 SARS-CoV-2, RNA, NAAT NEGATIVE Current Inpatient Medications Current Inpatient Medications: Current Inpatient Medications Acetaminophen (Acetaminophen 325 Mg Tab) 650 mg PO Q4H PRN PRN Reason: Headache or Minor Fever Stop: 03/08/22 16:05 Al Hydrox/Mg Hydrox/Simethicone (Aluminum/Magnesium Susp 30 Ml Udc) 30 ml PO Q4H PRN PRN Reason: GI Upset Stop: 03/08/22 16:05 Bismuth Subsalicylate (Bismuth Subsalicylate Liqd 236 Ml) 15 ml PO PRN PRN PRN Reason: Loose Stool Stop: 03/08/22 16:05 Buspirone HCl (Buspirone 5 Mg Tab) 10 mg PO BID MAXIMINO Stop: 03/08/22 20:59 Last Admin: 02/06/22 22:53 Dose: 10 mg Hydroxyzine HCl (Hydroxyzine Hcl 25 Mg Tab) 50 mg PO HSZ PRN PRN Reason: Insomnia Stop: 03/08/22 16:05 Hydroxyzine HCl (Hydroxyzine Hcl 25 Mg Tab) 25 mg PO Q4H PRN PRN Reason: Anxiety Stop: 03/08/22 16:05 Levothyroxine Sodium (Levothyroxine Sodium 112 Mcg Tablet) 112 mcg PO DAILY@0630 MAXIMINO Stop: 03/09/22 06:29 Last Admin: 02/07/22 06:06 Dose: 112 mcg Magnesium Hydroxide (Magnesium Hydroxide Susp 30 Ml Udc) 30 ml PO DAILY PRN PRN Reason: Constipation Stop: 03/08/22 16:05 Sodium Chloride (Sodium Chloride 0.65% Na Soln 45 Ml ([place])) 1 - 2 sprays NA PRN PRN PRN Reason: Nasal Dryness/Congestion Stop: 03/08/22 16:05 Trazodone HCl (Trazodone Hcl 100 Mg Tab) 100 mg PO HS MAXIMINO Stop: 03/08/22 21:59 Last Admin: 02/06/22 22:53 Dose: 100 mg Vitamin D (Cholecalciferol 1,000 Units 25 Mcg Tab) 2,000 units PO QAM MAXIMINO Stop: 03/09/22 08:59
[2022-02-07] MEDS: CHOLECALCIFEROL 1,000 UNITS 25 MCG TAB PO SCH (09:22)
[2022-02-07] MEDS: busPIRone 5 MG TAB PO SCH ×2 (09:22→22:13)
[2022-02-07] MEDS ORDERED: LORazepam 0.5 MG TAB PO PRN (10:27)
[2022-02-07] MEDS: FLUoxetine HCL 10 MG CAP PO SCH (12:18)
[2022-02-07] MEDS ORDERED: MIRTAZAPINE TAB 15 MG TAB PO SCH (22:00)
[2022-02-08] MEDS: LEVOTHYROXINE SODIUM 112 MCG TABLET PO SCH (06:58)
--- NOTE | 2022-02-08 08:50 | Psychiatric Progress Note ---
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 Diagnostically consistent with MDD with anxious distres and TOM with panic attacks. The patient is deemed unstable and requires psychiatric hospitalization for diagnostic clarification, safety and stabilization, medication management and development of further coping skills. 02/08/22: Ongoing severe depression and anxiety with significant insomnia. Tolerating the fluoxetine so far but some fogginess today so we will continue at current low dose for now. We will increase mirtazapine to further target insomnia. (1) Depression with suicidal ideation: (2) Recurrent severe major depressive disorder with anxiety: (3) Generalized anxiety disorder with panic attacks: Plan 02/08/22: Increase mirtazapine to 30 mg nightly continue with fluoxetine and BuSpar. 02/07/22: The patient was admitted to the [facility] ([facility] mental health unit) on q15 min checks (behavioral with suicide precautions) for safety. The patient will participate in group, recreational, and milieu therapies and will be offered additional individual and family sessions as clinically appropriate. -c/w buspar -discontinue trazodone -fluoxetine 10mg qd -mirtazapine 15 mg qhs -ativan 0.5mg daily prn for panic attacks Inventory Assets Strengths: supportive family, willingness to seek treatment, resilient Needs: safety and stabilization, medication adjustment, additional coping skills, increased outpatient services Suicide Risk Level Suicide Risk Level: High-Moderate (q15 min suicide checks) Suicide Risk Level Comments: High-Moderate due to severe depression with SI with plan prior to admission but feels safe in the hospital, able to safety contract and agrees to let nursing/staff know should they develop plan, intent or feel unable to remain safe. Risk Factors Assessment : Yes Do You Have Access To A Gun?: No Mental Health Diagnoses: Yes Previous Attempt: No Family History of Suicide: No Previous Psychiatric Hospitalization: Yes Hopelessness: Yes Protective Factors Assessment : Yes Responsible for Young Children: Yes Employed: Yes ([employer] [place] [employer]) Stable Relationships: Yes Supportive Family: Yes Good Rapport with Provider: Yes Interval History Identifying Information NIKO FRANCISCO is a 46-year-old F who currently lives in [place] with her and two children, has a history of depression, anxiety, post- depression, and was admitted on 02/06/22 14:23 on a 201 voluntary commitment for depression and SI with plan of jumping from a bridge or building. Chief Complaint "I know I keep taking about my job but I just don't know what I'm going to do". Review of Systems Sleep Information Total Hours of Sleep: 7 Sleep Comments: states she woke with anxiety Meal Information Percent Meal Consumed - Breakfast: 90 Percent Meal Consumed - Lunch: 100 Percent Meal Consumed - Dinner: 100 Subjective Subjective Patient was seen & assessed and interval progress reviewed with treatment team nursing and social work. Flat and depressed but smiling a few times. Slept for a reported 7 hours but she felt like she didn't sleep. Its ongoing severe depression and anxiety. She did not sleep well last night is interested in increasing the mirtazapine. She notes her mood is "very low". She is tolerating the fluoxetine so far denies any side effects except "a little fogginess" but she is unsure if this is due to poor sleep. She continues to feel very helpless and hopeless about her situation with her job she feels that she is absolutely unable to continue in her current position. Physical Exam Psychiatric Orientation: alert and oriented x 3 Apperance: appropriately dressed and appropriately groomed Eye Contact: good eye contact Motor Behavior: no abnormal motor movements Speech: normal rate/rhythm/volume of speech Affect: + depressed affect, + anxious affect and + tearful affect Mood: + depressed mood and + anxious mood Thought Process: goal directed thought process Thought Content: reality based without delusions Suicidal Thoughts: denies suicidal plan and denies suicidal intent; + reports suicidal thoughts (intermittent SI, no plan currently feels safe here) Homicidal Thoughts: denies homicidal thoughts Hallucinations: no auditory hallucinations and no visual hallucinations Cognition: recent memory grossly intact, remote memory grossly intact, attention grossly intact and language grossly intact Estimated Intelligence: consistent with education level Insight: + fair insight Judgement: + fair judgement Vital Signs (Past 24 Hours) Last Vital Signs Temp 36.9 C 02/08/22 06:00 Pulse 79 02/08/22 06:36 Resp 18 02/08/22 06:00 BP 105/70 02/08/22 06:36 Pulse Ox 99 02/06/22 15:49 O2 Del Method 02/06/22 15:49 Results & Data ([facility]) Current Inpatient Medications Current Inpatient Medications: Current Inpatient Medications Acetaminophen (Acetaminophen 325 Mg Tab) 650 mg PO Q4H PRN PRN Reason: Headache or Minor Fever Stop: 03/08/22 16:05 Al Hydrox/Mg Hydrox/Simethicone (Aluminum/Magnesium Susp 30 Ml Udc) 30 ml PO Q4H PRN PRN Reason: GI Upset Stop: 03/08/22 16:05 Bismuth Subsalicylate (Bismuth Subsalicylate Liqd 236 Ml) 15 ml PO PRN PRN PRN Reason: Loose Stool Stop: 03/08/22 16:05 Buspirone HCl (Buspirone 5 Mg Tab) 10 mg PO BID MAXIMINO Stop: 03/08/22 20:59 Last Admin: 02/07/22 22:13 Dose: 10 mg Fluoxetine HCl (Fluoxetine Hcl 10 Mg Cap) 10 mg PO QAM MAXIMINO Stop: 03/09/22 10:29 Last Admin: 02/07/22 12:18 Dose: 10 mg Hydroxyzine HCl (Hydroxyzine Hcl 25 Mg Tab) 50 mg PO HSZ PRN PRN Reason: Insomnia Stop: 03/08/22 16:05 Hydroxyzine HCl (Hydroxyzine Hcl 25 Mg Tab) 25 mg PO Q4H PRN PRN Reason: Anxiety Stop: 03/08/22 16:05 Levothyroxine Sodium (Levothyroxine Sodium 112 Mcg Tablet) 112 mcg PO DAILY@0630 MAXIMINO Stop: 03/09/22 06:29 Last Admin: 02/08/22 06:58 Dose: 112 mcg Lorazepam (Lorazepam 0.5 Mg Tab) 0.5 mg PO DAILY PRN PRN Reason: Anxiety/panic attacks Stop: 03/09/22 10:26 Magnesium Hydroxide (Magnesium Hydroxide Susp 30 Ml Udc) 30 ml PO DAILY PRN PRN Reason: Constipation Stop: 03/08/22 16:05 Mirtazapine (Mirtazapine Tab 15 Mg Tab) 15 mg PO HS MAXIMINO Stop: 03/09/22 21:59 Last Admin: 02/07/22 22:13 Dose: 15 mg Sodium Chloride (Sodium Chloride 0.65% Na Soln 45 Ml ([place])) 1 - 2 sprays NA PRN PRN PRN Reason: Nasal Dryness/Congestion Stop: 03/08/22 16:05 Vitamin D (Cholecalciferol 1,000 Units 25 Mcg Tab) 2,000 units PO QAM MAXIMINO Stop: 03/09/22 08:59 Last Admin: 02/07/22 09:22 Dose: 2,000 units Mental Health & Subst Abuse Tx Therapist Name of Therapist: Nimo Newsome Date of Therapist Appointment: 02/16/22 Database Admin Name of Database Admin: None Post Discharge Appointments Primary Care Physician Name Of Family Doctor: Radha Sr
[2022-02-08] MEDS: CHOLECALCIFEROL 1,000 UNITS 25 MCG TAB PO SCH (08:52)
[2022-02-08] MEDS: busPIRone 5 MG TAB PO SCH ×2 (08:53→21:14)
[2022-02-08] MEDS: FLUoxetine HCL 10 MG CAP PO SCH (08:53)
[2022-02-08] MEDS ORDERED: MIRTAZAPINE TAB 15 MG TAB PO SCH (22:00)
[2022-02-09] MEDS: LEVOTHYROXINE SODIUM 112 MCG TABLET PO SCH (07:04)
[2022-02-09] MEDS: busPIRone 5 MG TAB PO SCH ×2 (08:34→21:26)
[2022-02-09] MEDS: CHOLECALCIFEROL 1,000 UNITS 25 MCG TAB PO SCH (08:34)
[2022-02-09] MEDS: FLUoxetine HCL 10 MG CAP PO SCH (08:34)
--- NOTE | 2022-02-09 14:04 | Psychiatric Progress Note ---
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 Diagnostically consistent with MDD with anxious distres and TOM with panic attacks. The patient is deemed unstable and requires psychiatric hospitalization for diagnostic clarification, safety and stabilization, medication management and development of further coping skills. 02/09/22: Ongoing depression and anxiety with significant insomnia. Tolerating the fluoxetine so will increase to effective dose. Prefers to use trazodone again for sleep-reviewed risks/benefits/alternatives. (1) Depression with suicidal ideation: (2) Recurrent severe major depressive disorder with anxiety: (3) Generalized anxiety disorder with panic attacks: Plan 02/09/22: increase fluoxetine to 20mg qd, stop mirtazapine, start trazodone 100mg qhs. 02/08/22: Increase mirtazapine to 30 mg nightly continue with fluoxetine and BuSpar. 02/07/22: The patient was admitted to the [facility] ([facility]) on q15 min checks (behavioral with suicide precautions) for safety. The patient will participate in group, recreational, and milieu therapies and will be offered additional individual and family sessions as clinically appropriate. -c/w buspar -discontinue trazodone -fluoxetine 10mg qd -mirtazapine 15 mg qhs -ativan 0.5mg daily prn for panic attacks Inventory Assets Strengths: supportive family, willingness to seek treatment, resilient Needs: safety and stabilization, medication adjustment, additional coping skills, increased outpatient services Suicide Risk Level Suicide Risk Level: High-Moderate (q15 min suicide checks) Suicide Risk Level Comments: High-Moderate due to severe depression with SI with plan prior to admission but feels safe in the hospital, able to safety contract and agrees to let nursing/staff know should they develop plan, intent or feel unable to remain safe. Risk Factors Assessment : Yes Do You Have Access To A Gun?: No Mental Health Diagnoses: Yes Previous Attempt: No Family History of Suicide: No Previous Psychiatric Hospitalization: Yes Hopelessness: Yes Protective Factors Assessment : Yes Responsible for Young Children: Yes Employed: Yes ([employer]) Stable Relationships: Yes Supportive Family: Yes Good Rapport with Provider: Yes Interval History Identifying Information NIKO FRANCISCO is a 46-year-old F who currently lives in [place] with her and two children, has a history of depression, anxiety, post- depression, and was admitted on 02/06/22 14:23 on a 201 voluntary commitment for depression and SI with plan of jumping from a bridge or building. Chief Complaint "I'm doing a little better". Review of Systems Sleep Information Total Hours of Sleep: 5.5 Sleep Comments: Vistaril 50mg PO PRN Meal Information Percent Meal Consumed - Breakfast: 100 Percent Meal Consumed - Lunch: 100 Percent Meal Consumed - Dinner: 100 Subjective Subjective Patient was seen & assessed and interval progress reviewed with treatment team nursing and social work. Still not sleeping well, she attributes this in part due to hospital environment/15 min checks. Had family meeting and feels a "little more hopeful". Still with some fogginess but she's not sure if it's from the fluoxetine or from sleep difficulty/fatigue. Feeling like she has some time to consider work options if she applies for FMLA. Physical Exam Psychiatric Orientation: alert and oriented x 3 Apperance: appropriately dressed and appropriately groomed Eye Contact: good eye contact Motor Behavior: no abnormal motor movements Speech: normal rate/rhythm/volume of speech Affect: + depressed affect and + anxious affect Mood: + depressed mood and + anxious mood Thought Process: goal directed thought process Thought Content: reality based without delusions Suicidal Thoughts: denies suicidal thoughts, denies suicidal plan and denies suicidal intent Homicidal Thoughts: denies homicidal thoughts Hallucinations: no auditory hallucinations and no visual hallucinations Cognition: recent memory grossly intact, remote memory grossly intact, attention grossly intact and language grossly intact Estimated Intelligence: consistent with education level Insight: + fair insight Judgement: + fair judgement Vital Signs (Past 24 Hours) Last Vital Signs Temp 36.8 C 02/09/22 06:39 Pulse 87 02/09/22 06:40 Resp 16 02/09/22 06:39 BP 92/61 L 02/09/22 06:40 Pulse Ox 99 02/06/22 15:49 O2 Del Method 02/06/22 15:49 Results & Data ([facility]) Current Inpatient Medications Current Inpatient Medications: Current Inpatient Medications Acetaminophen (Acetaminophen 325 Mg Tab) 650 mg PO Q4H PRN PRN Reason: Headache or Minor Fever Stop: 03/08/22 16:05 Al Hydrox/Mg Hydrox/Simethicone (Aluminum/Magnesium Susp 30 Ml Udc) 30 ml PO Q4H PRN PRN Reason: GI Upset Stop: 03/08/22 16:05 Bismuth Subsalicylate (Bismuth Subsalicylate Liqd 236 Ml) 15 ml PO PRN PRN PRN Reason: Loose Stool Stop: 03/08/22 16:05 Buspirone HCl (Buspirone 5 Mg Tab) 10 mg PO BID [facility] Stop: 03/08/22 20:59 Last Admin: 02/09/22 08:34 Dose: 10 mg Fluoxetine HCl (Fluoxetine Hcl 20 Mg Cap) 20 mg PO QAM [facility] Stop: 03/12/22 08:59 Hydroxyzine HCl (Hydroxyzine Hcl 25 Mg Tab) 50 mg PO HSZ PRN PRN Reason: Insomnia Stop: 03/08/22 16:05 Last Admin: 02/08/22 23:38 Dose: 50 mg Hydroxyzine HCl (Hydroxyzine Hcl 25 Mg Tab) 25 mg PO Q4H PRN PRN Reason: Anxiety Stop: 03/08/22 16:05 Levothyroxine Sodium (Levothyroxine Sodium 112 Mcg Tablet) 112 mcg PO DAILY@0630 [facility] Stop: 03/09/22 06:29 Last Admin: 02/09/22 07:04 Dose: 112 mcg Lorazepam (Lorazepam 0.5 Mg Tab) 0.5 mg PO DAILY PRN PRN Reason: Anxiety/panic attacks Stop: 03/09/22 10:26 Magnesium Hydroxide (Magnesium Hydroxide Susp 30 Ml Udc) 30 ml PO DAILY PRN PRN Reason: Constipation Stop: 03/08/22 16:05 Sodium Chloride (Sodium Chloride 0.65% Na Soln 45 Ml ([place])) 1 - 2 sprays NA PRN PRN PRN Reason: Nasal Dryness/Congestion Stop: 03/08/22 16:05 Trazodone HCl (Trazodone Hcl 100 Mg Tab) 100 mg PO HS MAXIMINO Stop: 03/11/22 21:59 Vitamin D (Cholecalciferol 1,000 Units 25 Mcg Tab) 2,000 units PO QAM MAXIMNIO Stop: 03/09/22 08:59 Last Admin: 02/09/22 08:34 Dose: 2,000 units Mental Health & Subst Abuse Tx Therapist Name of Therapist: Nimo Newsome Date of Therapist Appointment: 02/16/22 Conduit Mechanic Name of Conduit Mechanic: None Post Discharge Appointments Primary Care Physician Name Of Family Doctor: Radha Sr
[2022-02-09] MEDS ORDERED: traZODone HCL 100 MG TAB PO SCH (22:00)
[2022-02-10] MEDS: LEVOTHYROXINE SODIUM 112 MCG TABLET PO SCH (06:45)
[2022-02-10] MEDS: busPIRone 5 MG TAB PO SCH (08:32)
[2022-02-10] MEDS: CHOLECALCIFEROL 1,000 UNITS 25 MCG TAB PO SCH (08:32)
[2022-02-10] MEDS ORDERED: FLUoxetine HCL 20 MG CAP PO SCH (09:00)
--- NOTE | 2022-02-10 13:50 | Discharge Summary ---
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 After the school year ended she transitioned off her psychiatric medications over the summer during a low stress time. Last fall since had very intense SI. Yesterday she felt extremely overwhelmed by the stress of her job and "I couldn't see a way out" and was feeling very suicidal with thoughts of driving somewhere and jumping off of something because she noted she didn't have access to a gun and didn't have any medications that could be used to cause enough harm at home. She feels she cannot do this job and feels she cannot leave the position because it would ruin her intermediate and isn't financially feasible. She notes that she was not well prepared for her new [employer] [employer] position and feels helpless to implement the corniculum and "it's too much, I can't do it". She endorses depressive symptoms including tearfulness, anhedonia, decreased motivation, self-guilt, shame, discomfort, helplessness, hopelessness, decreased energy, decreased appetite but still eating, and decreased sleep (can fall asleep but multiple awakenings over night, wakes up with extreme anxiety, usually only about 5 hours per night) as well as difficulty with concentration and she feels unable to present. She also endorses symptoms of anxiety, which seemed to start first and then lead to worsening depression. She endorses symptoms of anxiety including generalized worries, muscle tension in her neck, palpitations, easily overwhelmed and panic attacks occurring three times per day lasting for about 10-15 minutes. She was prescribed Buspar and trazodone last year but then stopped after doing well over the summer but restarted then about two weeks ago. Last fall she felt the medication helped a lot. Psychiatric ROS notable for no current nor history of symptoms of jitendra, psychosis, PTSD, OCD nor eating disorder. Physical Exam Vital Signs (Past 24 Hours) Last Vital Signs Temp 37 C 02/10/22 06:37 Pulse 96 H 02/10/22 06:37 Resp 16 02/10/22 06:37 BP 100/57 L 02/10/22 06:37 Pulse Ox 99 02/06/22 15:49 O2 Del Method 02/06/22 15:49 See admission H&P and DOD summary. Principal Diagnosis Major depressive disorder, recurrent with anxious distress Psychiatric Data See daily stay summary. In short, patient was engaged with the social /therapeutic milieu of the unit, safety was maintained and the patient was cooperative with care. Medication changes included initiation of fluoxetine which was titrated to 20mg daily, continuation of trazodone 100mg qhs and buspar 10mg BID, and initiation of ativan 0.5 mg daily prn (given 5 tabs for 30 days) to be used only rarely for severe panic attacks. She had some "fogginess" with fluoxetine but felt this was tolerable and wanted to continue with this as she thought some of the effects may be due to poor sleep which she attributed to being in the hospital. Should this not improve after 2 weeks of SSRI use then recommend consideration for reduction to 10mg daily for 1 month before re-trial of higher dose versus alternative medication trial. A family session was held and safety plan was completed prior to discharge. She actively and insightfully participated in safety planning and in discussions about ways to seek support and recognizing warning signs and utilizing coping skills. Reviewed mobile apps that could be used for additional ways to have their safety plan and contacts easily available should thoughts of SI re-emerge in the future. Reviewed importance of seeking emergency care should SI intensify, worsen or should they feel unsafe in the future which they agree to do. On the day of discharge she stated her mood was "nervous but more hopeful" and remained future-oriented including seeing her family, being with her kids and engaging in aftercare appointments for psychiatry and therapy. Day of Discharge Assessment Today the patient voices readiness for discharge. They note improvement in mood and anxiety. They deny thoughts of harm to self or others. Thoughts are organized and they are clinically improved from admission. There is no evidence of psychosis. They improved in the hospital with support and medication adjustments. They agree to take medications as prescribed and keep follow-up appointments. At the time of the discharge they are deemed to be stable and appropriate for outpatient level of care. They are not deemed to be at imminent risk of harm to self or others. They are aware of emergency and crisis services. Knows to call 911 or go to nearest emergency care center if in a crisis which cannot be handled as an outpatient. Transition of Care Transition Of Care Record: was reviewed with the patient Advance Directives Advance Directives Information Provided: Yes Advance Directives: No Mental Health Advance Directive: No Advance Directives on File: No Living Will: No Power of Medical Care Evaluation Specialist: No Advance Directives Reason:: Declines as Mental Health Visit. Suicide Risk Level Suicide Risk Level Comments: Acute risk is low given improvement in mood and denial of SI, lack of access to lethal means, some improvement in sleep, hopefulness, decrease in anxiety, processing ways to cope with job stress. Chronic risk is low to moderate given psychiatric co-morbid diagnoses, prior psychiatric hospitalizations, mood disorder but also with protective factors including having young children, support spouse and outpatient providers and no prior attempts. Counseled on ways to reduce acute and chronic risk including engaging with outpatient providers, using safety plan if needed, utilizing supports, taking medication, and using coping skills. Modifiable risk factors of SI, anxiety and depression were addressed during hospitalization through development of new coping skills, family meeting, safety planning, and medication adjustments. Risk Factors Assessment : Yes Do You Have Access To A Gun?: No Mental Health Diagnoses: Yes Previous Attempt: No Family History of Suicide: No Previous Psychiatric Hospitalization: Yes Hopelessness: No Protective Factors Assessment : Yes Responsible for Young Children: Yes Employed: Yes ([employer]) Stable Relationships: Yes Supportive Family: Yes Good Rapport with Provider: Yes Discharge Data Consultations 02/06/22 14:20 ED Decision to Admit Routine Lab Results 02/06/22 02/06/22 02/06/22 12:00 12:00 12:00 WBC RBC Hgb Hct MCV MCH MCHC RDW Std Deviation RDW Coeff of Ashley Plt Count MPV Immature Gran % (Auto) Neut % (Auto) Lymph % (Auto) Bowie % (Auto) Eos % (Auto) Baso % (Auto) Neut # (Auto) Lymph # (Auto) Bowie # (Auto) Eos # (Auto) Baso # (Auto) Immature Gran # (Auto) Sodium Potassium Chloride Carbon Dioxide Anion Gap BUN Creatinine Est Cr Clr Drug Dosing Est GFR ( Amer) Est GFR (Non-Af Amer) BUN/Creatinine Ratio Glucose Calcium Total Bilirubin AST ALT Alkaline Phosphatase Total Protein Albumin Globulin Albumin/Globulin Ratio TSH Urine Color Yellow Urine Appearance Clear Urine pH 6.0 Ur Specific [place] 1.005 Urine Protein Negative Urine Glucose (UA) Negative Urine Ketones Negative Urine Blood Negative Urine Nitrite Negative Urine Bilirubin Negative Urine Urobilinogen Negative Ur Leukocyte Esterase Negative POC Ur Test NEG Salicylates Urine Opiates Screen Neg Ur Methadone, Qual Neg Acetaminophen Urine Barbiturates Neg Ur Phencyclidine (PCP) Neg U Amphetamin/Meth Scrn Neg MDMA (Ecstasy) Screen Neg U Benzodiazepines Scrn Neg Ur Cocaine Metabolite Neg U Marijuana (THC) Screen Neg Ethyl Alcohol mg/dL SARS-CoV-2, RNA, NAAT 02/06/22 02/06/22 02/06/22 12:10 12:10 12:10 WBC 7.67 RBC 4.76 Hgb 14.3 Hct 43.9 MCV 92.2 MCH 30.0 MCHC 32.6 RDW Std Deviation 42.4 RDW Coeff of Ashley 12.4 Plt Count 247 MPV 10.1 Immature Gran % (Auto) 0.3 Neut % (Auto) 72.4 Lymph % (Auto) 17.3 Bowie % (Auto) 7.7 Eos % (Auto) 1.6 Baso % (Auto) 0.7 Neut # (Auto) 5.56 Lymph # (Auto) 1.33 Bowie # (Auto) 0.59 Eos # (Auto) 0.12 Baso # (Auto) 0.05 Immature Gran # (Auto) 0.02 Sodium 137 Potassium 3.6 Chloride 103 Carbon Dioxide 28 Anion Gap 6 BUN 13 Creatinine 0.81 Est Cr Clr Drug Dosing 109.5 Est GFR ( Amer) 102.4 Est GFR (Non-Af Amer) 88.3 BUN/Creatinine Ratio 16.0 Glucose 106 H Calcium 9.4 Total Bilirubin 0.7 AST 18 ALT 14 Alkaline Phosphatase 58 Total Protein 6.9 Albumin 4.4 Globulin 2.5 Albumin/Globulin Ratio 1.8 TSH 3.252 Urine Color Urine Appearance Urine pH Ur Specific [place] Urine Protein Urine Glucose (UA) Urine Ketones Urine Blood Urine Nitrite Urine Bilirubin Urine Urobilinogen Ur Leukocyte Esterase POC Ur Test Salicylates Urine Opiates Screen Ur Methadone, Qual Acetaminophen Urine Barbiturates Ur Phencyclidine (PCP) U Amphetamin/Meth Scrn MDMA (Ecstasy) Screen U Benzodiazepines Scrn Ur Cocaine Metabolite U Marijuana (THC) Screen Ethyl Alcohol mg/dL SARS-CoV-2, RNA, NAAT 09/08/2502/06/22 02/06/22 12:10 12:10 12:14 WBC RBC Hgb Hct MCV MCH MCHC RDW Std Deviation RDW Coeff of Ashley Plt Count MPV Immature Gran % (Auto) Neut % (Auto) Lymph % (Auto) Bowie % (Auto) Eos % (Auto) Baso % (Auto) Neut # (Auto) Lymph # (Auto) Bowie # (Auto) Eos # (Auto) Baso # (Auto) Immature Gran # (Auto) Sodium Potassium Chloride Carbon Dioxide Anion Gap BUN Creatinine Est Cr Clr Drug Dosing Est GFR ( Amer) Est GFR (Non-Af Amer) BUN/Creatinine Ratio Glucose Calcium Total Bilirubin AST ALT Alkaline Phosphatase Total Protein Albumin Globulin Albumin/Globulin Ratio TSH Urine Color Urine Appearance Urine pH Ur Specific [place] Urine Protein Urine Glucose (UA) Urine Ketones Urine Blood Urine Nitrite Urine Bilirubin Urine Urobilinogen Ur Leukocyte Esterase POC Ur Test Salicylates < 3.0 L Urine Opiates Screen Ur Methadone, Qual Acetaminophen < 3 L Urine Barbiturates Ur Phencyclidine (PCP) U Amphetamin/Meth Scrn MDMA (Ecstasy) Screen U Benzodiazepines Scrn Ur Cocaine Metabolite U Marijuana (THC) Screen Ethyl Alcohol mg/dL < 10.0 SARS-CoV-2, RNA, NAAT NEGATIVE Hospital Course (1) Depression with suicidal ideation: (2) Recurrent severe major depressive disorder with anxiety: (3) Generalized anxiety disorder with panic attacks: Plan 02/09/22: increase fluoxetine to 20mg qd, stop mirtazapine, start trazodone 100mg qhs. 02/08/22: Increase mirtazapine to 30 mg nightly continue with fluoxetine and BuSpar. 02/07/22: The patient was admitted to the [facility] ([facility] mental health unit) on q15 min checks (behavioral with suicide precautions) for safety. The patient will participate in group, recreational, and milieu therapies and will be offered additional individual and family sessions as clinically appropriate. -c/w buspar -discontinue trazodone -fluoxetine 10mg qd -mirtazapine 15 mg qhs -ativan 0.5mg daily prn for panic attacks Mental Health & Subst Abuse Tx Therapist Name of Therapist: Nimo Newsome Date of Therapist Appointment: 02/16/22 Planner Name of Planner: None Post Discharge Appointments Primary Care Physician Name Of Family Doctor: Radha Sr Other #1: [facility] Phone Number of Aftercare Appointment: [phone] Aftercare Appointment Comment: Please call to schedule intake for IOP if you are interested. Discharge Plan Discharge Items Patient Disposition: Home - Self-Care Reason For Visit: MDD Discharge Diagnosis: Major Depressive Disorder, recurrent with anxious distress Activity: Resume your previous activity Non-emergency contact: Primary Care Provider, Psychiatrist and Therapist Call non-emergency contact if: you have any medication questions and your symptoms worsen Follow-up/Referrals: Rica Sr, DO [Primary Care Provider] - Diet: Regular Addtl Attending Provider Instructions: Optional mobile apps we discussed: -Suicide safety plan -Virtual Hope Box -[employer] SPECIAL CARE INSTRUCTIONS: 1. Follow through with your scheduled aftercare appointments. If unable to keep an appointment, please call to reschedule. 2. Take your medication only as prescribed. Medication should not be changed or stopped without the approval of your doctor. In the event of worsening symptoms or concerns about side effects, contact your doctor immediately. 3. Utilize new healthy coping skills, anger management skills, and stress management skills learned during your hospitalization. Journal feelings and process them with a support person. Identify stressors or situations that may result in relapse, deterioration or inappropriate behaviors and develop a plan to deal with those issues. 4. If your coping skills are ineffective and you are in crisis, contact your outpatient providers for direction. If unable to reach your providers, please call the [facility] CRISIS LINE AT , go to the [facility] walk-in center at [address], [address], [place], or go to the closest Emergency Room. 5. Avoid alcohol and un-prescribed drugs. 6. You have been provided with the Mental Health Advance Directives Pamphlet for your review. 7. Your condition is stable for discharge to outpatient level of care, but recovery is an ongoing process. Ifthoughts to harm yourself or others return, follow the safety plan developed during your stay. Planning for a safe return home includes securing weapons. Our treatment team recommends weaponsbe removed from the home until your outpatient provider reassesses your progress. In rare cases where the items themselvescannot be removed, guns and ammunitionshould be secured separatelyand keys stored by a reliable personoutside of the home. If you were admitted on an involuntary commitment, the police or other legal authorities may be involved in this process. AFTERCARE APPOINTMENTS: * Please call your insurance company prior to your scheduled appointment to confirm your aftercare providers are covered. Take your insurance information to your appointments. WHO TO CALL AND WHEN: Medical Emergencies: For questions or emergencies related to your hospital stay, please contact the Inpatient Behavioral Health Unit at [phone]. A dairy equipment mechanic is on-call 27/12 for the Behavioral Health Unit for emergencies At any time you feel your situation is an emergency, you may also call 911 immediately. Pending Studies at Discharge: No Stand-Alone Forms: My [facility] Medications and DC Order Prescriptions: New buspirone 5 mg Tablet 10 mg PO BID Qty: 1 0RF trazodone 100 mg Tablet 100 mg PO HS 30 Days Qty: 30 0RF fluoxetine 20 mg capsule 20 mg PO DAILY 30 Days Qty: 30 0RF lorazepam [Ativan] 0.5 mg tablet 0.5 mg PO DAILY PRN (Reason: TOM with panic attacks) 30 Days Qty: 5 0RF Continued buspirone 10 mg tablet 10 mg PO BID levothyroxine 112 mcg tablet 112 mcg PO QAM cholecalciferol (vitamin D3) [D3-2000] 50 mcg (2,000 unit) capsule 50 mcg PO QAM Discharge Orders: Discharge Order (Routine); Ordered 02/10/22 Ordered By: Mayte Miller Admission Data Admit Date/Time: 02/06/22 14:23 Attending Provider: Mayte Miller Admit Provider: Mayte Miller Primary Care Provider: Rica Sr Other Providers: Mayte Miller Other Interventions: Discharge Summary Assessment (RN) Last Done: 02/10/22 14:35 PSY Interdisciplinary Discharge Planning Last Done: 02/10/22 14:35 Coding Level of Care Code 39289 D/C day mgmt > 30 min Diagnoses Depression with suicidal ideation F32.A; R45.851 Recurrent severe major depressive disorder with anxiety F33.2; F41.9 Generalized anxiety disorder with panic attacks F41.1; F41.0 Time Spent (min) 40
== END 2022-02-10 14:51 | disposition home or self-care (01) | DRG 885 ==
LOC: ED 11:36 → 3S 14:23